=== PATIENT | male | born 1960 | race African-American/Black ===

== ENCOUNTER 2018-05-06 12:17 | Emergency (ER) | payer OTHER ==
[~2018-05-06] VITALS: Ht 185.4 cm; Wt 88.5 kg
[~2018-05-06 12:17] MED LIST: BACTRIM DS TAB1 EACH PO; NORFLEX100 MG PO; SEROQUEL 50 MG50 M1 NG; ULTRAM 50MG TAB50 MG PO
[2018-05-06 12:21] VITALS: BP 157/76
[2018-05-06] MEDS ORDERED: VENTOLIN HFA 1818 GM INH (12:37)
[2018-05-06] MEDS ORDERED: PREDNISONE 20 M20 M1 PO (12:37)
== END 2018-05-06 13:04 | disposition home or self-care (01) ==
LOC: M.ERS 12:17
DX: R06.00 Dyspnea, unspecified (principal); Z86.14 Personal history of Methicillin resistant Staphylococcus aureus infection